=== PATIENT | male | born 1965 | race Caucasian/White ===

== ENCOUNTER 2016-06-16 19:56 | Emergency (ER) | payer OTHER, MEDICAID ==
[~2016-06-16] VITALS: Ht 170.2 cm; Wt 65.8 kg
[2016-06-16] MEDS ORDERED: TDAP [DIPH/PERTUSSIS/TET] 0.5 ML VIAL IM ONE ×2 (20:24→21:00)
[2016-06-16] MEDS ORDERED: IBUPROFEN 600 MG TABLET PO ONE ×3 (21:08→21:30)
[2016-06-16 21:30] VITALS: BP 118/65
== END 2016-06-16 21:30 ==
LOC: ER 19:58
DX: S01.511A Laceration without foreign body of lip, initial encounter (principal); I10 Essential (primary) hypertension; J45.909 Unspecified asthma, uncomplicated; E11.9 Type 2 diabetes mellitus without complications; Y08.89XA Assault by other specified means, initial encounter; Y93.89 Activity, other specified; Y92.89 Other specified places as the place of occurrence of the external cause; Y99.8 Other external cause status
CPT/HCPCS: 12011; 90471; 90715; 99283; A4606; A6402; Z7610; J3490